=== PATIENT | male | born 1975 | race Caucasian/White ===

== ENCOUNTER 2021-04-04 21:11 | Inpatient (IN) | payer OTHER ==
[~2021-04-04] VITALS: Ht 195.6 cm; Wt 127.0 kg
[~2021-04-04 21:11] MED LIST: DEXAMETHASON6 MG PO; IPRATROPIU0.5 MG/3 M IN; PROVENTIL HFA IN; ZITHROMAX Z-PA250 MG PO
[2021-04-04 22:09] LABS: HEMATOCRIT 45.1 % (39.0-50.0); HEMOGLOBIN 15.6 g/dl (14.0-18.0); IMMATURE GRANULOCYTES 0.6 % (0.0-5.0); MEAN CELL VOLUME 81.6 fL CALC (80.0-100.0); MEAN CORPUSCULAR HGB 28.2 pG CALC (26.0-32.0); MEAN CORPUSCULAR HGB CONC 34.6 g/dL CAL (32.0-36.0); NEUT# 6.94 thou/uL (1.82-7.42); RED BLOOD COUNT 5.53 mill/uL (4.70-6.10)
[2021-04-04 22:21] LABS: ALBUMIN 4.1 g/dL (3.2-5.0); ALKALINE PHOSPHATASE 64 u/l (38-126); ANION GAP 15 (6-22 (CALC)); BILIRUBIN, TOTAL 0.4 mg/dL (0.0-1.4); BUN 24 mg/dL (9-20); BUN/CREATININE RATIO 27 (12-20 (CALC)); CARBON DIOXIDE 26 mmol/l (22-30); CHLORIDE 100 mmol/l (95-108); CREATININE 0.9 mg/dL (0.7-1.3); GFR > 60 ML/MIN (>=60 (CALC)); GFR FOR AFR.AMER. > 60 ML/MIN (>=60 (CALC)); POTASSIUM 3.9 mmol/l (3.5-5.1); SGOT/AST 91 u/l (17-59); SODIUM 138 mmol/l (137-146); TOTAL PROTEIN 7.5 g/dL (6.3-8.2)
--- NOTE | 2021-04-04 22:38 | NUR ---
RESTING QUIETLY NAD
[2021-04-04] MEDS ORDERED: AMLODIPINE PO (23:24)
[2021-04-04] MEDS ORDERED: VALS PO (23:24)
[2021-04-04] MEDS ORDERED: NORMODYNE/TRAN100 MG PO (23:25)
[2021-04-04] MEDS ORDERED: ASPIRIN LOW DOS81 M1 PO (23:25)
--- NOTE | 2021-04-04 23:31 | NUR ---
RESTING QUIETLY AWAITING DISPO.
[2021-04-05] VITALS (9 sets, daily range): BP systolic 110–163; BP diastolic 57–88
--- NOTE | 2021-04-05 00:30 | NUR ---
RESTING QUIETLY NO CHANGE IN EXAM
[2021-04-05 00:53] LABS: URINE BILIRUBIN - DIPSTICK NEGATIVE (NEGATIVE); URINE BLOOD DIPSTICK NEGATIVE (NEGATIVE); URINE COLOR YELLOW; URINE GLUCOSE - DIPSTICK >=1000 mg/dL (NEGATIVE); URINE KETONE NEGATIVE (NEGATIVE); URINE LEUK ESTERASE NEGATIVE (NEGATIVE); URINE NITRITE - DIPSTICK NEGATIVE (Negative); URINE PROTEIN - DIPSTICK TRACE mg/dL (NEG-TRACE); URINE UROBILINOGEN - DIPSTICK 0.2 E.U./dL (0.2)
--- NOTE | 2021-04-05 01:30 | NUR ---
NAD AWAITING ROOM ASSIGNMENT
--- NOTE | 2021-04-05 02:00 | NUR ---
Admission Note Report Given to: SUZI MUSTAFA Transported by: X Wheelchair Stretcher Transported with: X Nurse Transporter X Patent IV X O2 X Zipper Cutter Location: ICU X [facility]
--- NOTE | 2021-04-05 02:59 | NUR ---
RECEIVED PATIENT TO ISOLATION ROOM 285 VIA WC AND O2 2L NC IN STABLE CONDITION ESCORTED BY Madeline. PATIENT ACTIVELY COUGHING, TELEMETRY APPLIED AFTER PATIENT COUGH SUBSIDED. ADMISSIONS ASSESSMENT COMPLETE. NO SOB AT THIS TIME. O2 2L N/C IN PLACE. DENIES PAIN. TYLENOL PO GIVEN ORDERED. PATIENT ORIENTED TO ROOM AND CALL LIGHT SYSTEM. IVF RUNNING AT 125. PATIENT CURRENTLY RESTING SEMI FOWLERS POSITION. BED IN LOW POSITION. CALL LIGHT WITHIN REACH.
--- NOTE | 2021-04-05 05:10 | NUR ---
RESTING QUIETLY. NO ACUTE DISTRESS NOTED.
--- NOTE | 2021-04-05 06:55 | NUR ---
REPORT FROM MOON ARCHER. ASSUMED PT CARE.
--- NOTE | 2021-04-05 08:03 | NUR ---
PT NOTED RESTING IN BED. WAKES EASILY. ALERT AND ORIENTED X4. NO APPARENT RESPIRATORY DISTRESS NOTED. O2 @ 2L/M VIA NC SAT 94%. PT STATES SOB INCREASED WITH EXERTION. NON-PRODUCTIVE COUGH. DIETARY MANAGER IN PLACE. IV SITE APPEARS HEALTHY, DRESSING REINFORCED WITH COBAN. JADYN HOSE IN PLACE. ASSESSMENT COMPLETE. DISCUSSED POC AND SAFETY PRECAUTIONS. PT VERBALIZED UNDERSTANDING. MEDICATED ORDERED. PT DENIES ANY CURRENT WANTS OR NEEDS. CALL LIGHT WITHIN REACH. WILL CONTINUE TO MONITOR.
--- NOTE | 2021-04-05 09:20 | NUR ---
FIRST DOSE OF REMDESIVIR INFUSING NO S/S OF ADVERSE REACTION NOTED. PT TOLERATING WELL.
--- NOTE | 2021-04-05 10:18 | NUR ---
PHYSICIAN AT BEDSIDE.
--- NOTE | 2021-04-05 11:19 | NUR ---
NOTIFIED SAMIR MOSCOSO OF PT CURRENT VS. O2 SAT 90%, INCREASED O2 2.5L/M VIA NC. WILL CONTINUE TO MONITOR.
--- NOTE | 2021-04-05 12:08 | NUR ---
CURRENT O2 SAT 93% ON 2.5L/M VIA NC.
--- NOTE | 2021-04-05 14:05 | NUR ---
PT OOB TO TAKE SHOWER. COMPLETE LINEN CHANGE PROVIDED. NO APPARENT DISTRESS. SOB WITH EXERTION NOTED. ENCOURAGED PT TO CALL FOR ASSISTANCE OR WORSENING OF SOB. CALL LIGHT WITHIN REACH. WILL CONTINUE TO MONITOR.
--- NOTE | 2021-04-05 18:04 | NUR ---
PT SITTING UP IN CHAIR AT BEDSIDE. NO APPARENT DISTRESS NOTED. NON-PRODUCTIVE COUGH NOTED. PT REFUSED PRN COUGH MEDICINE AT THIS TIME. IV ABT INITIATED. NO CURRENT WANTS OR NEEDS. PT REMAINS ON 2.5L/M VIA NC. CALL LIGHT WITHIN REACH. WILL CONTINUE TO MONITOR.
--- NOTE | 2021-04-05 20:40 | NUR ---
PATIENT SEMI FOWLERS POSITION. NONPRODUCTIVE COUGH PROMINENT WHEN PATIENT REPOSITIONS. OFFERED VENTOLIN. PATIENT ACCEPTED AFTER SPACER WAS OBTAINED FROM RT. PATIENT REPORTS FEELING BETTER THAN LAST NIGHT. " LONG I DON'T MOVE AROUND I'M FINE." LUNG SOUNDS IMPROVED SINCE LAST NIGHT. ASSESSMENT COMPLETED AND CHARTED. DRESSING TO VAD LAC REINFORCED WITH TEDADERM. IVF INFUSING ORDERED. BED IN LOW POSITION. CALL LIGHT WITHIN REACH.
--- NOTE | 2021-04-06 01:26 | NUR ---
PATIENT CURRENTLY RESTING IN SUPINE POSITION. NO ACUTE DISTRESS NOTED. O2 2.5L IN PLACE. BED IN LOW POSITION. CALL LIGHT WITHIN REACH.
[2021-04-06 04:00] VITALS: BP 148/84
--- NOTE | 2021-04-06 04:59 | NUR ---
NO CHANGES OBSERVED. RESTNG WITH EYES CLOSED. NO ACUTE DISTRESS NOTED.
--- NOTE | 2021-04-06 05:58 | NUR ---
THIS NURSE SPOKE WITH PATIENT REGARDING MEDICATIONS ADDED TO EMAR. PATIENT IS UNAWARE OF DIAGNOSIS OF DIABETES. THIS IS NO HGBAIC DRAWN. WILL SPEAK WITH A.M. NURSE TO HAVE INFORMATION CLARIFIED AND INFORM THE PATIENT. PATIENT IS CURRENTLY UP TO CHAIR RELAXING. NO COUGHING NOTED AT THIS TIME.
[2021-04-06 06:21] LABS: HEMATOCRIT 40.9 % (39.0-50.0); HEMOGLOBIN 13.8 g/dl (14.0-18.0); IMMATURE GRANULOCYTES 1.4 % (0.0-5.0); MEAN CELL VOLUME 83.3 fL CALC (80.0-100.0); MEAN CORPUSCULAR HGB 28.1 pG CALC (26.0-32.0); MEAN CORPUSCULAR HGB CONC 33.7 g/dL CAL (32.0-36.0); NEUT# 6.38 thou/uL (1.82-7.42); RED BLOOD COUNT 4.91 mill/uL (4.70-6.10); RED CELL DISTRI WIDTH 13.4 % (11.5-15.5)
[2021-04-06 06:37] LABS: ALKALINE PHOSPHATASE 43 u/l (38-126); ANION GAP 11 (6-22 (CALC)); BILIRUBIN, TOTAL 0.4 mg/dL (0.0-1.4); BUN 18 mg/dL (9-20); BUN/CREATININE RATIO 25 (12-20 (CALC)); C-REACTIVE PROTEIN 2.8 mg/dL (0-0.9); CARBON DIOXIDE 26 mmol/l (22-30); CHLORIDE 108 mmol/l (95-108); CREATININE 0.7 mg/dL (0.7-1.3); GFR > 60 ML/MIN (>=60 (CALC)); GFR FOR AFR.AMER. > 60 ML/MIN (>=60 (CALC)); POTASSIUM 4.1 mmol/l (3.5-5.1); SGOT/AST 58 u/l (17-59); SODIUM 140 mmol/l (137-146)
[2021-04-06 06:40] LABS: ALBUMIN 3.1 g/dL (3.2-5.0); TOTAL PROTEIN 5.7 g/dL (6.3-8.2)
--- NOTE | 2021-04-06 07:10 | NUR ---
REPORT RECEIVED FROM SUZI MUSTAFA
[2021-04-06 08:45] VITALS: BP 147/87
--- NOTE | 2021-04-06 08:45 | NUR ---
PT RESTING IN SEMI FOWLERS POSITION,A&O X3;VS OBTAINED AND ASSESSMENT COMPLETED;PT DENIES ANY CURRENT PAIN OR DISCOMFORTS,PAIN SCALE AND REPORTING EDUCATED;RESPIRATIONS SHALLOW ON O2 @ 2L VIA NC, O2 SATS 88-89% ON 2L.OXYGEN INCREASED TO 3L AND O2 SATS MANDO TO 92%;NON-PRODUCTIVE COUGH NOTED AND PT MEDICATED WITH PRN ROBITUSSIN;ABDOMEN SOFT ON PALPATION AND ACTIVE IN ALL 4 QUADRANTS;STRONG PEDAL PULSES;SKIN INTACT;TELE MONITORING IN PLACE;#20G TO LAC INFUSING NS @ 125ML/HR,SITE APPEARS HEALTHY;PT REMAINS IN AIR/CONTACT PRECAUTIONS DUE TO COVID19 DX;PT DENIES ANY ADDITIONAL NEEDS AND IS ENCOURAGED TO CALL FOR ASSISTANCE IF NEEDED;FALL PRECAUTIONS IN PLACE WITH BED IN THE LOWEST POSITION AND CALL LIGHT IN REACH;WILL CONTINUE TO MONITOR
[2021-04-06 10:23] VITALS: BP 132/63
--- NOTE | 2021-04-06 10:25 | NUR ---
AT BEDSIDE DISCUSSING POC.
--- NOTE | 2021-04-06 10:47 | NUR ---
XRAY AT BEDSIDE
--- NOTE | 2021-04-06 11:20 | NUR ---
PT RESTING IN SEMI FOWLERS POSITION;RESPIRATIONS REMAIN SHALLOW ON O2 @ 3L VIA NC;PT DENIES ANY CURRENT PAIN OR DISCOMFORTS;TELE MONITORING IN PLACE;IV SITE PATENT AND INFUSING NS @ 10ML/HR;PT DENIES ANY ADDITIONAL NEEDS;ENCOURAGED TO CALL FOR ASSISTANCE IF NEEDED;CALL LIGHT IN REACH;WILL CONTINUE TO MONITOR
--- NOTE | 2021-04-06 14:23 | NUR ---
PT MEDICATED WITH PRN ROBITUSSIN AC AT THIS TIME FOR COUGH,WILL CONTINUE TO MONITOR FOR EFFECTIVENESS
[2021-04-06 15:13] VITALS: BP 120/60
--- NOTE | 2021-04-06 15:15 | NUR ---
PT APPEARS TO BE SLEEPING IN LEFT SIDE LAYING POSITION;RESPIRATIONS APPEAR SHALLOW ON O2 @ 3L VIA NC;NO S/S OF DISTRESS NOTED;TELE MONITORING IN PLACE;IV SITE PATENT INFUSING NS WITH EASE PER ORDER;ALL SAFETY PRECAUTIONS REMAIN IN PLACE WITH BED IN THE LOWEST POSITION AND CALL LIGHT IN REACH;WILL CONTINUE TO MONITOR
[2021-04-06 18:30] VITALS: BP 156/82
--- NOTE | 2021-04-06 19:48 | NUR ---
PATIENT LAYS IN HIGH MORENO'S, WACTHES TV, ALERT AND ORIENTED X4. IS ON 3 L/MIN NC AND O2 SAT IS 90%. DOES BEGIN TO COUGH NON-STOP WHEN ASKED TO TAKE DEEP BREATHS FOR NURSE ASSESSMNET. DENIES SOB. LAC IV INTACT, NS INFUSING PROPERLY. REPORTS 2 LOOSE BMS TODAY. IS OFFERED COUGH MEDICATION FOR TONIGHT, ACCEPTS. WAS ASKED IF HE IS LAYING PRONE, REPORTS HE IS "TRYING TO." CALL LIGHT WITHIN REACH.
--- NOTE | 2021-04-06 21:37 | NUR ---
COUGH MEDICATION PROVIDED FOR TONIGHT. ANTIBIOTIC INFUSING NOW. 91% ON 3 L/MIN NC. NO ACUTE DISTRESS SHOWN. PATIENT DENIES ANY RESPIRATORY DISTRESS. ICED WATER PROVIDED. CALL LIGHT WITHIN REACH.
[2021-04-06 23:30] VITALS: BP 143/73
--- NOTE | 2021-04-07 01:04 | NUR ---
PATIENT RESTS WITH EYES CLSOED. LAYS SUPINE. NO ACUTE DISTRESS SHOWN. CALL LIGHT WITHIN REACH.
[2021-04-07 04:00] VITALS: BP 151/59
--- NOTE | 2021-04-07 04:08 | NUR ---
SLUBBER MACHINE OPERATOR IN ROOM FOR AM LAB WORK.
[2021-04-07 04:55] LABS: HEMATOCRIT 42.3 % (39.0-50.0); HEMOGLOBIN 14.1 g/dl (14.0-18.0); IMMATURE GRANULOCYTES 2.9 % (0.0-5.0); MEAN CELL VOLUME 82.6 fL CALC (80.0-100.0); MEAN CORPUSCULAR HGB 27.5 pG CALC (26.0-32.0); MEAN CORPUSCULAR HGB CONC 33.3 g/dL CAL (32.0-36.0); NEUT# 5.19 thou/uL (1.82-7.42); RED BLOOD COUNT 5.12 mill/uL (4.70-6.10); RED CELL DISTRI WIDTH 13.1 % (11.5-15.5)
--- NOTE | 2021-04-07 05:10 | NUR ---
PATIENT AWAKENS WHEN SPOKEN TO. LAYS IN MORENO'S POSITION. SHALLOW BREATHING, NO CHANGES FROM LAST NIGHT, O2 SAT 93% ON 3 L/MIN NC. NO COMPLAINTS OR NEEDS AT THIS TIME. CALL LIGHT WITHIN REACH.
[2021-04-07 05:23] LABS: ALBUMIN 3.1 g/dL (3.2-5.0); ALKALINE PHOSPHATASE 51 u/l (38-126); ANION GAP 13 (6-22 (CALC)); BILIRUBIN, TOTAL 0.4 mg/dL (0.0-1.4); BUN 19 mg/dL (9-20); BUN/CREATININE RATIO 26 (12-20 (CALC)); C-REACTIVE PROTEIN 1.8 mg/dL (0-0.9); CARBON DIOXIDE 25 mmol/l (22-30); CHLORIDE 105 mmol/l (95-108); CREATININE 0.7 mg/dL (0.7-1.3); GFR > 60 ML/MIN (>=60 (CALC)); GFR FOR AFR.AMER. > 60 ML/MIN (>=60 (CALC)); SGOT/AST 60 u/l (17-59); SODIUM 139 mmol/l (137-146); TOTAL PROTEIN 5.9 g/dL (6.3-8.2)
--- NOTE | 2021-04-07 06:55 | NUR ---
REPORT RECEIVED FROM BHARGAVIRN
[2021-04-07 08:00] VITALS: BP 125/81
--- NOTE | 2021-04-07 08:50 | NUR ---
PT OOB RESTING IN RECLINER,A&O X3;VS OBTAINED AND ASSESSMENT COMPLETED;PT DENIES ANY CURRENT PAIN OR DISCOMFORTS,PAIN SCALE AND REPORTING EDUCATED;RESPIRATIONS SHALLOW ON O2 @ 2L VIA NC,CLEAR/DIMINISHED LUNG SOUNDS;NON-PRODUCTIVE COUGH NOTED AND PT MEDICATED WITH PRN ROBITUSSIN AC;ABDOMEN SOFT ON PALPATION AND ACTIVE IN ALL 4 QUADRANTS;STRONG PEDAL PULSES;SKIN INTACT;TELE MONITORING IN PLACE;#20G TO LAC INFUSING NS @ 10ML/HR,SITE APPEARS HEALTHY;PT REMAINS IN AIR/CONTACT PRECAUTIONS AT THIS TIME DUE TO COVID19 DX;PT DENIES ANY ADDITIONAL NEEDS AND IS ENCOURAGED TO CALL FOR ASSISTANCE IF NEEDED;FALL PRECAUTIONS IN PLACE WITH CALL LIGHT IN REACH;WILL CONTINUE TO MONITOR
--- NOTE | 2021-04-07 10:11 | NUR ---
AT BEDSIDE DISCUSSING POC.
[2021-04-07 10:17] VITALS: BP 144/75
--- NOTE | 2021-04-07 11:40 | NUR ---
PT RESTING IN SEMI FOWLERS POSITION;RESPIRATIONS EVEN AND UNLABORED ON O2 @ 2L VIA NC;PT DENIES ANY CURRENT PAIN OR DISCOMFORTS;TELE MONITORING IN PLACE;IV SITE PATENT;PT DENIES ANY ADDITIONAL NEEDS AT THIS TIME AND IS ENCOURAGED TO CALL FOR ASSISTANCE IF NEEDED;CALL LIGHT IN REACH;WILL CONTINUE TO MONITOR
[2021-04-07 15:30] VITALS: BP 127/72
--- NOTE | 2021-04-07 16:10 | NUR ---
PT RESTING IN SEMI FOWLERS POSITION;RESPIRATIONS EVEN AND UNLABORED ON O2 @ 2L VIA NC;PT DENIES ANY CURRENT NEEDS;IV SITE PATENT AND TELE MONITORING IN PLACE;PT ENCOURAGED TO CALL FOR ASSISTANCE IF NEEDED;CALL LIGHT IN REACH;WILL CONTINUE TO MONITOR
[2021-04-07 19:00] VITALS: BP 137/82
--- NOTE | 2021-04-07 20:47 | NUR ---
PATIENT SITS IN RECLINER, ON 2 L/MIN NC. SHALLOW BREATHING, DOES HAVE DRY COUGH UTILIZATION REVIEW RN. NO COMPLAINTS, SWALLOWS MEDS APPROPRIATELY. NURSE ASSESSMENT PERFORMED, IV X1 INTACT, SLAINE LOCKED. CALL LIGHT WITHIN REACH.
--- NOTE | 2021-04-07 22:32 | NUR ---
INHALER PROVIDED PER PT REQUEST.
[2021-04-07 23:42] VITALS: BP 92/60
[2021-04-08 03:55] VITALS: BP 143/79
[2021-04-08 05:44] LABS: ANION GAP 12 (6-22 (CALC)); BUN 20 mg/dL (9-20); BUN/CREATININE RATIO 29 (12-20 (CALC)); CARBON DIOXIDE 23 mmol/l (22-30); CHLORIDE 106 mmol/l (95-108); CREATININE 0.7 mg/dL (0.7-1.3); GFR > 60 ML/MIN (>=60 (CALC)); GFR FOR AFR.AMER. > 60 ML/MIN (>=60 (CALC)); POTASSIUM 4.1 mmol/l (3.5-5.1); SODIUM 137 mmol/l (137-146)
--- NOTE | 2021-04-08 05:46 | NUR ---
BATTERIES CHANGED TO PUBLIC AREA ATTENDANT. PATIENT LAYS IN MORENO'S POSITION. NO ACUTE DISTRESS SHOWN. NO COMPLAINTS OR NEEDS AT THIS TIME. CALL LIGHT WITHIN REACH.
[2021-04-08 05:55] LABS: HEMATOCRIT 41.1 % (39.0-50.0); HEMOGLOBIN 13.9 g/dl (14.0-18.0); MEAN CORPUSCULAR HGB 27.7 pG CALC (26.0-32.0); MEAN CORPUSCULAR HGB CONC 33.8 g/dL CAL (32.0-36.0); RED BLOOD COUNT 5.01 mill/uL (4.70-6.10); RED CELL DISTRI WIDTH 12.9 % (11.5-15.5)
[2021-04-08 07:35] VITALS: BP 137/74
--- NOTE | 2021-04-08 07:35 | NUR ---
JENNIFERT SITTING UP IN CHAIR AT THIS TIME. PATIENT EXHIBITS DRY COUGH AT THIS TIME. PATIENT SPO2 AT THIS TIME IS 88% ON 2 LITERS. PATIENT OXYGEN TITRATED UP TO 3 LITER AND SPO2 IS AT 92%. LUNG FIELD ARE DIMINISHED AT THIS TIME IN ALL LUNG SMITH. PATIENT R[place]ELT SHORTNESS OF BREATH AND RESPIRATIONS ARE SHALLOW AT THIS TIME. CALL LIGHT IS Daric. TELE MONITOR IN PLACE AT THIS TIME.
[2021-04-08 10:53] VITALS: BP 131/76
--- NOTE | 2021-04-08 11:32 | NUR ---
PATIENT RESTING IN BED AT THIS TIME. DENIES ANY NEEDS AND OR PAIN OR SHORTNESS OF BREATH. SPO2 AT THIS TIME IS 93% ON 3 LITERS. SIDERAILS ARE UP CALL LIGHT IS WITHIN REACH. TELE MONITOR ON AND BEING MONITORED BY ED.
[2021-04-08 14:50] VITALS: BP 128/71
--- NOTE | 2021-04-08 16:09 | NUR ---
ESTEBAN SITTING UP IN CHAIR AT THIS TIME. PATIENT REMAINS ON 3 LITERS OF OXYGEN AND SPO2 IS 90%. PATIENT USING FLUTTER VAULVE AND DRY COUGH IS PRESENT UPON DEEP BREATHING. CALL LIGHT IS WITHIN REACH. PATIENT DENIES ANY NEEDS CURRENTLY AND DENIES ANY PAIN.
--- NOTE | 2021-04-08 18:13 | NUR ---
PATIENT REFUSING TO HAVE IV SITE CHANGED AT THIS TIME PATIENT STATES HE IS GOING HOME TOMORROW AND DOESN'T WANT IT CHANGED.
[2021-04-08 19:00] VITALS: BP 129/80
--- NOTE | 2021-04-08 19:59 | NUR ---
PATIENT REPORTS FEELING BETTER. LUNG SOUNDS WERE DIMINISHED WITH CRACKLES NOTED AT THE BASES. NONPRODUCTIVE COUGH MUCH IMPROVED SINCE ADMISSION. DENIES PAIN. ON TELEMETRY. HR REGULAR. NO ACUTE DISTRESS NOTED. IV INFUSING. BED IN LOW POSITION. CALL LIGHT WITHIN REACH.
[2021-04-08 23:30] VITALS: BP 133/78
--- NOTE | 2021-04-09 02:12 | NUR ---
PATIENT RESTING SEMI FOWLERS. O2 3L NC IN PLACE. NO ACUTE DISTRESS NOTED. BED IN LOW POSITION. CALL LIGHT WITHIN REACH.
[2021-04-09 03:30] VITALS: BP 127/72
[2021-04-09 04:51] LABS: HEMATOCRIT 41.8 % (39.0-50.0); HEMOGLOBIN 14.3 g/dl (14.0-18.0); IMMATURE GRANULOCYTES 4.7 % (0.0-5.0); MEAN CELL VOLUME 81.3 fL CALC (80.0-100.0); MEAN CORPUSCULAR HGB 27.8 pG CALC (26.0-32.0); MEAN CORPUSCULAR HGB CONC 34.2 g/dL CAL (32.0-36.0); NEUT# 6.65 thou/uL (1.82-7.42); RED BLOOD COUNT 5.14 mill/uL (4.70-6.10); RED CELL DISTRI WIDTH 12.7 % (11.5-15.5)
[2021-04-09 05:14] LABS: ALBUMIN 3.1 g/dL (3.2-5.0); ALKALINE PHOSPHATASE 54 u/l (38-126); ANION GAP 11 (6-22 (CALC)); BILIRUBIN, TOTAL 0.4 mg/dL (0.0-1.4); BUN 19 mg/dL (9-20); BUN/CREATININE RATIO 25 (12-20 (CALC)); C-REACTIVE PROTEIN 1.2 mg/dL (0-0.9); CARBON DIOXIDE 25 mmol/l (22-30); CHLORIDE 105 mmol/l (95-108); CREATININE 0.8 mg/dL (0.7-1.3); GFR > 60 ML/MIN (>=60 (CALC)); GFR FOR AFR.AMER. > 60 ML/MIN (>=60 (CALC)); POTASSIUM 4.1 mmol/l (3.5-5.1); SGOT/AST 81 u/l (17-59); SODIUM 137 mmol/l (137-146); TOTAL PROTEIN 5.9 g/dL (6.3-8.2)
--- NOTE | 2021-04-09 08:00 | NUR ---
SHIFT CHANGE REPORT, PT AWAKE ALERT AND ORIENTED AMBULATING IN ROOM TO BR FOR SHOWER, DENIES PAIN AND STATES HE FEELS MUCH BETTER TODAY AND LOOKING FORWARD TO GOING HOME, O2 @ 3L VIA NC IN PLACE, TELE MONITOR IN PLACE AND CALL RODRIGUES IN REACH.
[2021-04-09 08:13] VITALS: BP 127/71
[2021-04-09 11:02] VITALS: BP 139/77
--- NOTE | 2021-04-09 12:00 | NUR ---
MEDICAL TEAM ROUNDED AND DISCUSSED PLAN OF CARE, PT RELAXING IN BED, ALL NEEDS ADDRESSED.
--- NOTE | 2021-04-09 14:54 | NUR ---
Discharge instructions given. Patient verbalizes understanding of same. Discharged in stable condition via Wheelchair to Home with spouse. All belongings sent with pt.
== END 2021-04-09 14:51 | disposition home or self-care (01) | DRG 177 ==
LOC: ED 21:11 → ED-I 04-05 00:05 → ED 04-05 00:55 → MS2 04-05 00:56
PROVIDERS: Emergency Medicine; Hospitalist; Nurse Practitioner; ADMIT Internal Medicine; ATTEND Internal Medicine
PROC: XW033E5 Introduction of Remdesivir Anti-infective into Peripheral Vein, Percutaneous Approach, New Technology Group 5 (ICD-10-PCS; principal; 2021-04-05)
DX: U07.1 COVID-19 (principal); J12.82 Pneumonia due to coronavirus disease 2019; J96.01 Acute respiratory failure with hypoxia; E87.2 Acidosis; I10 Essential (primary) hypertension; K76.0 Fatty (change of) liver, not elsewhere classified
CPT/HCPCS: J1650; Q9967